=== PATIENT | female | born 2000 | race Caucasian/White ===

== ENCOUNTER 2020-06-16 06:29 | Emergency (ER) | payer SELFPAY ==
[2020-06-16 06:39] VITALS: BP 146/95; PULSE 100; RESP 16; TEMP 36.7; O2SAT 96; BMI 25.7
[2020-06-16 06:50] VITALS: BP 146/95; RESP 16; O2SAT 98
--- NOTE | 2020-06-16 06:51 | ED_ITS ---
HPI - Skin/Abscess/Foreign Bdy General: Chief complaint: Skin/Abscess/Foreign Body Stated complaint: RASH Time Seen by Provider: 06/16/20 06:42 Source: patient Mode of arrival: ambulatory Limitations: no limitations History of Present Illness: HPI narrative: Patient is a 20-year-old female presents to ED today with a complaint of an intermittent rash to her scalp and back of neck that she has had over the past 7 months. Patient tells me she will occasionally treat with hydrocortisone cream and Vaseline which seems to mildly improve her symptoms but states rash has never fully went away. complaint: rash Onset (ago): month(s) Tetanus up to date: yes Location: head (scalp) and neck Severity: mild Quality: pruritic Exacerbating factors: none Context: none Associated symptoms: Reports no associated symptoms; Deny chills or fever(s) Treatments prior to arrival: corticosteroid Review of Systems Const: Denies: fever(s), chills, body aches, fatigue or malaise Eyes: Denies: change in vision ENMT: Denies: throat pain, odynophagia, oral sores, ear or mastoid pain, ear discharge, nasal discharge or nasal congestion Musc: Denies: neck pain, back pain or joint pain Skin/Breast: Reports: rash Neuro: Denies: headache(s) Physical Exam Const: COMMON NORMALS: no acute distress, patient oriented x3, no limitations and alert HENMT: COMMON NORMALS: normocephalic and atraumatic HEAD & SCALP: normocephalic, atraumatic and other (see skin exam) FACE & SINUS: normal fa cial exam Neuro: COMMON NORMALS: patient oriented x3 SENSORIUM/ORIENTATION: Yes alert Skin: OTHER: pt with diffuse small red follicular papules with greasy scales noted to posterior neck; she has scattered lesions to scalp Course Vital Signs: Vital signs: Vital Signs Temperature 98.1 F 06/16/20 06:39 Pulse Rate 87 06/16/20 07:10 Respiratory Rate 18 06/16/20 07:10 Blood Pressure 132/95 06/16/20 07:10 Pulse Oximetry 98 06/16/20 07:10 Discharge Plan Discharge Patient Disposition: Home Clinical Impression: Seborrheic dermatitis Condition: Stable Prescriptions: New ketoconazole 2 % shampoo 1 applic TOPICAL Q14D Qty: 120 RF: 2 Discharge Orders: Discharge Order (Routine); Ordered 06/16/20 Ordered By: Shaylee Kennedy Referrals: Phil Spivey MD [Primary Care Provider] - Patient Instructions: Seborrheic Dermatitis Activity Restrictions/Additional Instructions: As discussed please followup with Dr. Spivey in two weeks for re-evaluation. Discharge Date/Time: 06/16/20 07:11 Coding Level of Care Code ED Manager [employer] for Robbieg Whit
[2020-06-16 07:10] VITALS: BP 132/95; PULSE 87; RESP 18; O2SAT 98
== END 2020-06-16 07:11 | disposition home or self-care (01) ==
PROVIDERS: Emergency Provider Physician Assistant; PCP Family Medicine
DX: L21.9 Seborrheic dermatitis, unspecified (principal)
CPT/HCPCS: 12345; 99281

== ENCOUNTER 2020-06-23 11:54 | Emergency (ER) | payer SELFPAY ==
[2020-06-23 12:00] VITALS: BP 123/78; PULSE 104; RESP 14; TEMP 36.4; O2SAT 98; BMI 25.6
--- NOTE | 2020-06-23 12:18 | W.ED.SKABFB ---
HPI - Skin/Abscess/Foreign Bdy General: Chief complaint: Skin/Abscess/Foreign Body Stated complaint: rash on neck Time Seen by Provider: 06/23/20 12:04 History of Present Illness: HPI narrative: Patient complains about rash on her scalp and her neck and also some areas was pus and some lymphadenopathy has been going on for quite a while. MD complaint: rash Onset (ago): week(s) Tetanus up to date: yes Location: head Severity: moderate Associated symptoms: Deny chills, fever(s), nausea or vomiting Review of Systems Const: Denies: fever(s), chills or body aches Eyes: Denies: change in vision or blurry vision ENMT: Denies: throat pain or nasal congestion Card: Denies: chest pain or dyspnea on exertion Resp: Denies: dyspnea, productive cough or non-productive cough GI: Denies: abdominal pain, nausea or vomiting Musc: Denies: extremity pain Skin/Breast: Reports: rash (To scalp and neck pain she currently uses is not working) Neuro: Denies: headache(s) Psych: Denies: anxiety or depression [place]/Lymph: Denies: easy bruising Physical Exam Const: COMMON NORMALS: no acute distress, average body habitus and patient oriented x3 HENMT: COMMON NORMALS: normocephalic HEAD & SCALP: normal to inspection and normocephalic FACE & SINUS: normal facial exam Eye: COMMON NORMALS: conjunctivae normal GENERAL EYE: appearance normal, both eyes and all related structures CONJUNCTIVA: Yes conjunctivae normal Neck/C-Spine: COMMON NORMALS: no JVD Chest: COMMONS NORMALS: normal inspection of the chest Resp: COMMON NORMALS: normal respiratory effort and clear to auscultation bilaterally AUSCULTATION: clear to auscultation bilaterally Cardio: COMMON NORMALS: no JVD, regular rate and regular rhythm RATE: regular rate RHYTHM: regular rhythm GI: COMMON NORMALS: Normal to inspection, nondistended, normoactive bowel sounds present Extremity: COMMON NORMALS: normal to inspection and full ROM Neuro: COMMON NORMALS: patient oriented x3 Skin: NARRATIVE SKIN EXAM: Patient has maculopapular rash scattered on her scalp and her neck. Some of it is pus filled. Consistent with impetigo. Also the pattern fits where her hair touches on her neck. Her patient's hair is dyed red and appears to be had allergic reaction to that day. Course Vital Signs: Vital signs: Vital Signs Temperature 97.6 F 06/23/20 12:00 Pulse Rate 104 H 06/23/20 12:00 Respiratory Rate 14 06/23/20 12:00 Blood Pressure 123/78 06/23/20 12:00 Pulse Oximetry 98 06/23/20 12:00 Discharge Plan Discharge Patient Disposition: Home Clinical Impression: Impetigo Allergic reaction to dye Qualifiers: Encounter type: initial encounter Qualified Code(s): T50.995A - Adverse effect of other drugs, medicaments and biological substances, initial encounter Condition: Stable Prescriptions: New mupirocin 2 % ointment 1 applic TOPICAL TID Qty: 22 RF: 1 Bactrim DS 800-160 mg tablet 1 tab PO BID 7 Days Qty: 14 RF: 0 No Action ketoconazole 2 % shampoo 1 applic TOPICAL Q14D Qty: 120 RF: 2 Discharge Orders: Discharge Order (Routine); Ordered 06/23/20 Ordered By: Gregory Rao Referrals: Phil Spivey MD [Primary Care Provider] - Discharge Diet: Usual diet Discharge Activity: Resume usual activity Patient Instructions: Impetigo (ED) Activity Restrictions/Additional Instructions: Follow-up with medical provider as directed. Take medications as prescribed. Return to the ER or your medical provider if condition worsens. Please read and understand discharge instructions. If any questions ask please. Do not use that to have a hair dye anymore Coding Level of Care Code ED [employer] Supervisor for Marco Antonio Sherman
[2020-06-23] MEDS: methylPREDNISolone (DEPO) 80 MG/ML INJ 1 mL IM (12:49)
[2020-06-23 12:51] VITALS: BP 112/64; PULSE 74; RESP 17; O2SAT 98
== END 2020-06-23 12:56 | disposition home or self-care (01) ==
LOC: ER 12:31
PROVIDERS: Emergency Provider Nurse Practitioner Family; PCP Family Medicine
DX: L01.00 Impetigo, unspecified (principal); T50.995A Adverse effect of other drugs, medicaments and biological substances, initial encounter
CPT/HCPCS: 12345; 96372; 99281; 99283; J1040

== ENCOUNTER 2021-03-12 06:15 | Emergency (ER) | payer SELFPAY ==
[2021-03-12 06:17] VITALS: BP 143/95; PULSE 130; RESP 16; TEMP 36.8; O2SAT 100; BMI 27.4
--- NOTE | 2021-03-12 06:33 | ED_ITS ---
HPI - Skin/Abscess/Foreign Bdy General: Chief complaint: Skin/Abscess/Foreign Body Stated complaint: RASH ON BACK OF NECK - BEEN GOING ON A WHILE Time Seen by Provider: 03/12/21 06:24 History of Present Illness: HPI narrative: 21 yo emmie presents with comp;l aint of a rash on the back of her neck for the last several weeks. She has trialed several OTC meds with no relief of symptoms. She has had this in the past, She has not seen any one recently for this. MD complaint: rash Onset (ago): week(s) Location: neck Severity: mild Quality: pruritic Relieving factors: none Exacerbating factors: none Associated symptoms: Deny arthralgias, chills, cough, fever(s), itching, myalgias, nausea, rigidity, short of breath or vomiting Treatments prior to arrival: none Review of Systems Const: Denies: fever(s) or chills ENMT: Denies: throat pain, ear or mastoid pain, nasal discharge or nasal congestion Card: Denies: chest pain, edema, dyspnea on exertion or orthopnea Resp: Denies: dyspnea, productive cough or non-productive cough GI: Denies: nausea or vomiting : Denies: flank pain, difficulty voiding, dysuria, urinary frequency or urinary urgency Skin/Breast: Denies: rash or pruritus Physical Exam Const: COMMON NORMALS: no acute distress GENERAL APPEARANCE: cooperative and comfortable ORIENTATION/CONSCIOUSNESS: Yes awake, Yes oriented to person, Yes oriented to place and Yes oriented to time HENMT: COMMON NORMALS: normocephalic, atraumatic and hearing grossly normal bilaterally HEAD & SCALP: normocephalic and atraumatic Neuro: SENSORIUM/ORIENTATION: Yes oriented to person, Yes oriented to place and Yes oriented to time Skin: NARRATIVE SKIN EXAM: superficial erythema with no induration, there is no serous drainage, no bullea, no vesicles. No purulent drainage, no fluctuant abscess. Sluffing of the superficial epidermis Course Vital Signs: Vital signs: Vital Signs Temperature 98.2 F 03/12/21 06:17 Pulse Rate 130 H 03/12/21 06:17 Respiratory Rate 16 03/12/21 06:17 Blood Pressure 143/95 03/12/21 06:17 Pulse Oximetry 100 03/12/21 06:17 MDM - Skin/Abscess/Foreign Bdy MDM Narrative: Medical decision making narrative: start bactrim and toipical mupirocin. If not improving recheck. Discharge Plan Discharge Patient Disposition: Home Clinical Impression: Cellulitis Condition: Stable Prescriptions: New Bactrim DS 800-160 mg tablet 1 tab PO BID 7 Days Qty: 14 RF: 0 mupirocin calcium 2 % cream 1 applic topical BID Qty: 30 RF: 0 No Action ketoconazole 2 % shampoo 1 applic TOPICAL Q14D Qty: 120 RF: 2 mupirocin 2 % ointment 1 applic TOPICAL TID Qty: 22 RF: 1 Discharge Orders: Discharge ED (Routine); Ordered 03/12/21 Ordered By: Benjamin Hager Discharge Diet: Usual diet Discharge Activity: Resume usual activity Patient Instructions: Opioid Safety Activity Restrictions/Additional Instructions: Follow up with your primary care provider if not improving. Coding Level of Care Code ED Contract Driver for Marco Antonio Sherman
[2021-03-12 06:38] VITALS: BP 128/88; PULSE 128; RESP 17; TEMP 36.8; O2SAT 98
== END 2021-03-12 06:40 | disposition home or self-care (01) ==
PROVIDERS: Emergency Provider Family Medicine
DX: L03.221 Cellulitis of neck (principal)
CPT/HCPCS: 99281

== ENCOUNTER 2021-04-12 15:42 | Emergency (ER) | payer SELFPAY ==
[2021-04-12 16:37] VITALS: BP 122/76; PULSE 91; RESP 18; TEMP 37.4; O2SAT 98; BMI 30.4
--- NOTE | 2021-04-12 17:10 | ED_ITS ---
HPI - Fever General: Chief Complaint: Fever Stated Complaint: H/A SORE THROAT Time Seen by Provider: 04/12/21 16:52 Source: patient Mode of arrival: ambulatory Limitations: no limitations History of Present Illness: HPI Narrative: 21-year-old female comes in with sore throat and chills and night sweats for the last 3 days. Patient reports poor appetite. Denies any other symptoms besides a sore throat and occasional abdominal discomfort. Patient appears mildly unwell. Patient appears in no pain at rest. elicited complaint: fever Onset (ago): day(s) Exacerbating factors: nothing Review of Systems General: Reports: 10 or more systems reviewed and unremarkable except in HPI and below ENMT: Reports: throat pain [facility] ED Female Reproductive History: Date of last menstrual period: 03/26/21 Physical Exam Const: COMMON NORMALS: no acute distress and patient oriented x3 GENERAL APPEARANCE: cooperative HENMT: COMMON NORMALS: normocephalic, TM's normal bilaterally and Normal external nose present HEAD & SCALP: normal to inspection and normocephalic NOSE: Normal external nose present TYMPANIC MEMBRANE: TM's normal bilaterally MOUTH: Normal oral and palatal mucosa present THROAT: abnormal tonsil bilateral and posterior oropharynx abnormal erythema Eye: GENERAL EYE: appearance normal, both eyes and all related structures Neck/C-Spine: COMMON NORMALS: full ROM Lymph: LYMPHATIC: lymphadenopathy (Anterior cervical lymphadenopathy) Chest: COMMONS NORMALS: normal inspection of the chest Resp: COMMON NORMALS: normal respiratory effort EFFORT & INSPECTION: Yes able to speak in complete sentences Cardio: COMMON NORMALS: regular rate and regular rhythm RATE: regular rate RHYTHM: regular rhythm GI: COMMON NORMALS: non-tender Back/Pelvis: COMMON NORMALS: thoracic and lumbar spine normal to inspection Extremity: COMMON NORMALS: normal to inspection Neuro: COMMON NORMALS: patient oriented x3 and moves all extremities Psych: COMMON NORMALS: mental status grossly normal and cooperative Skin: COMMON NORMALS: no rashes or lesions noted GENERAL SKIN EXAM: no rashes or lesions noted Course Vital Signs: Vital signs: Vital Signs Temperature 99.3 F 04/12/21 16:37 Pulse Rate 91 04/12/21 16:37 Respiratory Rate 18 04/12/21 16:37 Blood Pressure 122/76 04/12/21 16:37 Pulse Oximetry 98 04/12/21 16:37 MDM - Fever MDM Narrative: Medical decision making narrative: 21-year-old female comes in today with sore throat and fever for the last 3 days. Patient has been using conservative management with Tylenol and ibuprofen with minimal to no relief. On exam patient has some tonsillar enlargement with erythema in the posterior pharynx. Respirations are even lungs are clear to auscultation. Patient manages secretions well. No abnormal swelling is noted. No abdomen tenderness or enlargement of the liver or spleen is noted. Differential diagnosis includes but not limited to strep pharyngitis, tonsillitis, infectious mono. [place] screen was negative, strep test was negative. Reviewed exam with patient with recommendations for treatment with dexamethasone 10 mg x 1 with clindamycin 300 mg 3 times a day to follow for the next 7 days. Patient reported understanding of care plan and need for follow-up or return to the ER. Lab Data: Labs: Lab Results 04/12/21 04/12/21 Range/Units 17:02 17:02 Monoscreen Negative (Negative) Group A Strep Rapi d Negative (Negative) Discharge Plan Discharge Patient Disposition: Home Clinical Impression: Acute bacterial tonsillitis Condition: Stable Prescriptions: New clindamycin HCl 150 mg capsule 300 mg PO TID 7 Days Qty: 42 RF: 0 No Action mupirocin calcium 2 % cream 1 applic topical BID Qty: 30 RF: 0 ketoconazole 2 % shampoo 1 applic TOPICAL Q14D Qty: 120 RF: 2 mupirocin 2 % ointment 1 applic TOPICAL TID Qty: 22 RF: 1 Discharge Orders: Discharge ED (Routine); Ordered 04/12/21 Ordered By: Elian Carrillo Discharge Diet: Usual diet Discharge Activity: Increase activity as tolerated Patient Instructions: Tonsillitis (ED), Opioid Safety Activity Restrictions/Additional Instructions: Drink plenty of fluids. Take antibiotics as directed. Healthy diet and exercise. Use acetaminophen and ibuprofen for pain and discomfort. Follow-up with primary care as needed. Return to the emergency department for new concerns. Coding Level of Care Code ED Care Transport Nurse for Marco Antonio [employer] Exam Comprehensive
[2021-04-12 17:36] LABS: Rapid Strep A Test Negative (Negative)
[2021-04-12 17:50] LABS: Monoscreen Negative (Negative)
[2021-04-12] MEDS: clindamycin 150 mg Capsule 300 MG PO (18:06)
[2021-04-12] MEDS: dexamethasone 4 mg Tablet 10 MG PO (18:06)
== END 2021-04-12 18:11 | disposition home or self-care (01) ==
PROVIDERS: Emergency Medicine; Family Medicine; Emergency Provider Nurse Practitioner Family
DX: J03.80 Acute tonsillitis due to other specified organisms (principal)
CPT/HCPCS: 86308; 87081; 87880; 99283; J8540